=== PATIENT | male | born 1975 | race Caucasian/White ===

== ENCOUNTER 2016-10-13 00:15 | Emergency (ER) | payer OTHER ==
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
--- NOTE | 2016-10-25 13:02 | ED MAR SUMMARY ---
..... Medication Administration Record [facility] [address] [place], [place] [id number] Patient: MATTHEW SIMMONS Visit ID: [id number] 41y, M Weight: 99.7 kg Height/Length: 72 in BMI: 29.8 ALLERGIES: Codeine
--- NOTE | 2016-10-25 13:02 | ED MED RECONCILIATION SUMMARY ---
Patient: MATTHEW SIMMONS Medication Reconciliation Report [facility] VisitID: [id number] [address] [place] [address] 41y, M Registration Date/Time: 10/13/2016 Weight: 99.7 kg Height/Length: 72 in. BMI: 29.8 ALLERGIES: Codeine The patient's Home Medications are listed below: NONE. The source(s) of the original Home Medication information: Not obtained. The following Medications were given to the patient in the Emergency Department: None. The following Medications were prescribed to the patient: None.
--- NOTE | 2016-10-25 13:02 | ED DISCHARGE INSTRUCTIONS ---
Patient: MATTHEW SIMMONS General Instructions [facility] VisitID: [id number] [place] [address] 41y, M Registration Date/Time: 10/13/2016 Single deep skin avulsion of the right knee. Foreign body present. INSTRUCTIONS Apply ice for 20 minutes three times a day as needed and until better. Don't apply ice directly to skin and don't use while asleep. (Your wound cannot be stitched, due to the amount of missing skin and flesh. Please keep the wound clean. Once it scabs over, you may leave it open to the air. Otherwise, apply antibiotic ointment daily when you change the bandage.). Warnings: GENERAL WARNINGS: Return or contact your physician immediately if your condition worsens or changes unexpectedly, if not improving as expected, or if other problems arise. Follow-up: Follow up with your doctor as needed. Understanding of the discharge instructions verbalized by patient. (Electronically signed by Gerri Hancock MD 10/25/2016 13:01)
--- NOTE | 2016-10-25 13:02 | ED DISCHARGE INSTRUCTIONS ---
Patient: MATTHEW SIMMONS General Instructions [facility] VisitID: [id number] [place] [address] 41y, M Registration Date/Time: 10/13/2016 Single deep skin avulsion of the right knee. Foreign body present. INSTRUCTIONS Apply ice for 20 minutes three times a day as needed and until better. Don't apply ice directly to skin and don't use while asleep. (Your wound cannot be stitched, due to the amount of missing skin and flesh. Please keep the wound clean. Once it scabs over, you may leave it open to the air. Otherwise, apply antibiotic ointment daily when you change the bandage.). Warnings: GENERAL WARNINGS: Return or contact your physician immediately if your condition worsens or changes unexpectedly, if not improving as expected, or if other problems arise. Follow-up: Follow up with your doctor as needed. Understanding of the discharge instructions verbalized by patient. (Electronically signed by Gerri Hancock MD 10/25/2016 13:01)
--- NOTE | 2016-10-25 13:02 | ED MED RECONCILIATION SUMMARY ---
Patient: MATTHEW SIMMONS Medication Reconciliation Report [facility] VisitID: [id number] [address] [place] [address] 41y, M Registration Date/Time: 10/13/2016 Weight: 99.7 kg Height/Length: 72 in. BMI: 29.8 ALLERGIES: Codeine The patient's Home Medications are listed below: NONE. The source(s) of the original Home Medication information: Not obtained. The following Medications were given to the patient in the Emergency Department: None. The following Medications were prescribed to the patient: None.
--- NOTE | 2016-10-25 13:02 | ED MAR SUMMARY ---
..... Medication Administration Record [facility] [address] [place] [id number] Patient: MATTHEW SIMMONS Visit ID: [id number] 41y, M Weight: 99.7 kg Height/Length: 72 in BMI: 29.8 ALLERGIES: Codeine
== END 2016-10-13 01:38 | disposition home or self-care (01) ==
LOC: ED SRH 00:15
DX: S81.001A Unspecified open wound, right knee, initial encounter (principal); V13.4XXA Pedal cycle driver injured in collision with car, pick-up truck or van in traffic accident, initial encounter; Y93.55 Activity, bike riding; Y92.481 Parking lot as the place of occurrence of the external cause; Z88.5 Allergy status to narcotic agent